=== PATIENT | male | born 1965 | race Caucasian/White ===

== ENCOUNTER 2018-01-20 12:54 | Day surgery (SDC) | payer BC, OTHER ==
[~2018-01-20 12:54] MED LIST: CEFAZOLIN SODIUM 0.5 GM in DEXTROSE 5%-WATER 25 ML IV PRN; CEFAZOLIN SODIUM 0.5 GM in DEXTROSE 5%-WATER 50 ML IV PRN; SUCCINYLCHOLINE CHLORIDE INJ 200 MG/10 ML VIAL ONE
[2018-01-20] MEDS ORDERED: MIDAZOLAM 2 MG/2 ML INJ ONE (13:16)
[2018-01-20] MEDS ORDERED: FENTANYL CITRATE INJ/PF 100 MCG/2 ML AMPUL ONE (13:16)
[2018-01-20] MEDS ORDERED: ONDANSETRON HCL INJ/PF 4 MG/2 ML SDV ONE (13:17)
[2018-01-20] MEDS ORDERED: PROPOFOL INJ 200 MG/20 ML VIAL IV ONE (13:17)
[2018-01-20] MEDS ORDERED: ACETAMINOPHEN 1,000 MG/100 ML RTUPB IV ONE (13:17)
[2018-01-20] MEDS ORDERED: DEXAMETHASONE SOD PHOSPHATE INJ 4 MG/1 ML VIAL ONE (13:17)
[2018-01-20 13:52] LABS: ABSOLUTE BASOPHILS # (AUTO) 0.1 10^3/uL (0.0-0.2); ABSOLUTE EOSINOPHILS # (AUTO) 0.6 10^3/uL (0.0-0.6); ABSOLUTE LYMPHOCYTES (AUTO) 3.5 10^3/uL (0.5-4.7); ABSOLUTE MONOCYTES (AUTO) 1.1 10^3/uL (0.1-1.4); ABSOLUTE NEUT (AUTO) 8.3 10^3/uL (1.7-8.2); EOSINOPHILS % (AUTO) 4.2 % (0-6); HEMOGLOBIN 15.3 g/dL (13.5-17.0); LYMPHOCYTES % (AUTO) 25.8 % (13-45); MEAN CORPUSCULAR HGB CONC 34.8 g/dL (32.0-36.0); MEAN CORPUSCULAR VOLUME 86 fl (80-97); MONOCYTES % (AUTO) 8.4 % (3-13); PLATELET COUNT 300 10^3/uL (150-450); RED CELL DISTRIBUTION WIDTH 13.1 % (11.5-14.0); SEGMENTED NEUTROPHILS % (AUTO) 60.6 % (42-78); TOTAL CELLS COUNTED % (AUTO) 100 %; WHITE BLOOD COUNT 13.7 10^3/uL (4.0-10.5)
[2018-01-20] MEDS ORDERED: BUPIVACAINE HCL 0.5 % INJ/PF 30 ML SDV ONE (14:53)
[2018-01-20] MEDS ORDERED: LIDOCAINE 0.5% INJ-PF (5 MG/ML) 50 ML SDV ONE (14:53)
[2018-01-20] MEDS ORDERED: DIPHENHYDRAMINE HCL 50 MG/ML VIAL IV PRN (15:45)
[2018-01-20] MEDS ORDERED: PROMETHAZINE HCL INJ 25 MG/1 ML VIAL IV PRN ×2 (15:45)
[2018-01-20] MEDS ORDERED: FENTANYL CITRATE INJ/PF 100 MCG/2 ML AMPUL IV PRN ×3 (15:45)
[2018-01-20] MEDS ORDERED: ONDANSETRON HCL INJ/PF 4 MG/2 ML SDV IV PRN (15:45)
[2018-01-20] MEDS ORDERED: MEPERIDINE HCL/PF INJ 25 MG/1 ML DISP.SYRIN IV PRN (15:45)
[2018-01-20] MEDS ORDERED: MORPHINE SULFATE 10 MG/ML INJ IV PRN (15:45)
[2018-01-20] MEDS: FENTANYL CITRATE INJ/PF 100 MCG/2 ML AMPUL ONE ×2 (16:20→16:34)
--- NOTE | 2018-01-20 17:08 | Operative Report ---
Operative Report DATE OF SURGERY: 01/20/18 PREOPERATIVE DIAGNOSIS: Infected large right upper back sebaceous cyst POSTOPERATIVE DIAGNOSIS: Same OPERATION: Excisional debridement of skin, subcutaneous tissue, fascia, inflammatory tissue, and rind of infected sebaceous cyst SURGEON: ELIGIO VELARDE ANESTHESIA: GA TISSUE REMOVED OR ALTERED: Skin, subcutaneous tissue, fascia, rind of infected sebaceous cyst COMPLICATIONS: None ESTIMATED BLOOD LOSS: 200 cc INTRAOPERATIVE FINDINGS: See below PROCEDURE: Patient was taken to the preop holding area to the main operating room where general anesthesia was induced. Patient is rolled in the prone jackknife position. Back exposed, prepped and draped in sterile fashion Surgical plan and surgical timeout conducted The right upper back large infected sebaceous cyst was anesthetized with 1% plain lidocaine, approximately 10 cc. We then made an elliptical excision into the abscess which was consistent with an infected sebaceous cyst. Approximately 35 cc of dewey pus was evacuated and sent for Gram stain culture and sensitivity. We now removed a larger ellipse of skin approximately 5 x 2.5 cm. Then using multiple #10 blades, the subcutaneous tissue, running, and lining of the thick, chronic sebaceous cavity was removed. Skin, subcutaneous tissue and fascia were all debrided and disposed of. Multiple grams of tissue were removed from the upper back. The infection extended down to included the fascia of the upper back. Bleeding was moderate. Bleeders were cauterized as encountered. The degree of debridement was felt to be very good. Wound irrigated with saline bleeders cauterized, and wound packed open with one third bottle of perform packing. Patient tolerated procedure well, rotated into the supine position, extubated and taken to recovery room in stable condition. Discharge plans discussed with nursing staff.
[2018-01-20] MEDS: CEFAZOLIN SODIUM 0.5 GM in DEXTROSE 5%-WATER 50 ML IV SCH (23:16)
[2018-01-21] MEDS: CEFAZOLIN SODIUM 0.5 GM in DEXTROSE 5%-WATER 50 ML IV SCH (05:11)
[2018-01-21 09:24] VITALS: BP 134/82
--- NOTE | 2018-01-21 18:16 | DISCHARGE SUMMARY E ---
Discharge Summary NAME: SOREN RUBIO : 1965 AGE: 52Y ADMITTED: 01/20/2018 DISCHARGED: 01/21/2018 FINAL DIAGNOSIS: Infected large sebaceous cyst of the back PROCEDURE DONE: Incision and drainage and excision of an infected cyst on the right upper back, surgeon Dr. Villarreal, 01/20/18. HOSPITAL COURSE: This is a 52-year-old male noted to have a large cyst on the right upper back that got infected. He was taken to the OR on 01/20/18 for excision and debridement of the right back cyst abscess. On the day of discharge 01/21/18, packing was removed and the wound looks good and repacked with Iodoform gauze. Procedure was done with his at bedside, who works at the [facility]'s [employer]. She will continue packing changes every day for the next 2 or 3 days. The patient also to continue clindamycin 500 mg q.6 hours for the next 5 days until his pills are done. These were prescribed [facility]. Also a prescription for Percocet was given. The patient, however, claims that he most likely is not going to need any Percocet but just have it available just in case. He is a retired [employer] and has followed outpatient with drug addiction. On 01/21/18, the dressing was changed, the wound looks good, and then discharged to be followed up in the surgical clinic in about a week, care of Vicky Lambert PA-C. The patient instructed to shower if need be after removal of the packing and after shower packing can be replaced. DICTATING PHYSICIAN: ALYSSA VINCENT M.D. [id number] PHY#: [id number] ID: [id number] JOB#: [id number] ACCT: [id number] cc:Jorge ALFRED M.D. > [facility]
== END 2018-01-21 09:45 | disposition home or self-care (01) ==
LOC: OROUT 12:54 → 5 18:49 → OROUT 01-21 09:45
PROVIDERS: ATTEND Surgery
DX: L72.3 Sebaceous cyst (principal); E07.9 Disorder of thyroid, unspecified; F17.210 Nicotine dependence, cigarettes, uncomplicated; G47.00 Insomnia, unspecified; Z79.899 Other long term (current) drug therapy; Z79.82 Long term (current) use of aspirin
CPT/HCPCS: 36415; 87070; 87205; 85025; 87075; 11043; A6266; J2250; J3490; J0690 ×2; J1100; J3010; J0330; J2405; J2704; J0131; 300